=== PATIENT | male | born 1990 | race Caucasian/White ===

== ENCOUNTER 2023-02-27 10:22 | Emergency (ER) | payer OTHER ==
[~2023-02-27] VITALS: Ht 182.9 cm; Wt 90.7 kg
[~2023-02-27 10:22] MED LIST: AMOXICILLIN875 MG PO; AUGMENTIN 875-1 EACH PO; CYCLOBENZAPRINE10 MG PO; KEFLEX500 MG PO; MOTRIN400 MG PO; NAPROXEN500 MG PO; NORCO 5-325 TA1 EACH PO; PREDNISONE20 MG PO; ZOFRAN ODT4 MG SL
[2023-02-27] MEDS ORDERED: CYCLOBENZAPRINE10 MG PO (11:49)
[2023-02-27 12:04] VITALS: BP 112/72
== END 2023-02-27 11:58 | disposition home or self-care (01) ==
LOC: ED 10:22
DX: M54.50 Low back pain, unspecified (principal); F17.200 Nicotine dependence, unspecified, uncomplicated
CPT/HCPCS: 99283